=== PATIENT | male | born 1975 | race Caucasian/White ===

== ENCOUNTER 2016-09-27 01:07 | Emergency (ER) | payer OTHER ==
[2016-09-27 01:48] LABS: HEMOGLOBIN 15.6 gm/dl (14.0-17.5); RED BLOOD COUNT 4.92 M/UL (4.20-5.50); WHITE BLOOD COUNT 11.8 K/UL (4.5-11.0)
[2016-09-27 02:00] LABS: BUN/CREATININE RATIO 17 (0-10)
== END 2016-09-27 04:21 | disposition home or self-care (01) ==
LOC: ER1 01:07
PROVIDERS: Emergency Medicine
DX: R07.2 Precordial pain (principal); R07.89 Other chest pain; R06.02 Shortness of breath; I10 Essential (primary) hypertension; E11.9 Type 2 diabetes mellitus without complications
CPT/HCPCS: 36415; 71010; 80053; 81001; 82962; 83690; 83880; 84484; 85025; 99285; G0480

== ENCOUNTER → 2021-01-31 | Outpatient (CLI) | payer OTHER | LOC: HEART 5 13:55 | DX: J44.9 Chronic obstructive pulmonary disease, unspecified (principal) | CPT/HCPCS: 94060; 94729 ==

== ENCOUNTER → 2021-08-08 | Outpatient (CLI) | payer OTHER | LOC: EXRD 15:08 | DX: J44.9 Chronic obstructive pulmonary disease, unspecified (principal) | CPT/HCPCS: 71046 ==

== ENCOUNTER → 2021-11-12 | Outpatient (CLI) | payer OTHER | LOC: RT 14:42 | DX: J44.9 Chronic obstructive pulmonary disease, unspecified (principal); R09.02 Hypoxemia | CPT/HCPCS: 36600; 82803 ==